=== PATIENT | female | born 1970 | race Caucasian/White ===

== ENCOUNTER → 2025-05-06 08:58 | Outpatient (REF) | payer BC, SELFPAY ==
[2025-05-06 12:30] LABS: Hematocrit 43.5 % (37.0-47.0); Hemoglobin 14.3 g/dL (12.0-16.0); Mean Corp Hgb Conc. 32.9 g/dL (33.0-37.0); Mean Corpuscular Volume 88.1 fL (81.0-99.0); Nucleated Red Blood Cells % 0 %; Platelet Count 274 10^3/uL (130-400); Red Cell Dist. Width 13.1 % (11.5-14.5)
[2025-05-06 13:13] LABS: ALT (SGPT) 30 U/L (0-35); AST (SGOT) 26 U/L (14-36); Albumin 4.6 g/dl (3.5-5.0); Alkaline Phosphatase 59 U/L (38-126); Blood Urea Nitrogen 15 mg/dl (7-17); Calcium 9.9 mg/dl (8.4-10.2); Carbon Dioxide 30 mmol/L (22-30); Chloride 104 mmol/L (98-107); Glucose 92 mg/dl (70-99); HDL Cholesterol 37 mg/dl; LDL Cholesterol, Calculated 155 mg/dl; Potassium 4.6 mmol/L (3.5-5.1); Sodium 142 mmol/L (135-145); Total Protein 7.8 g/dl (6.3-8.2); Very Low Density Lipoprotein 19 mg/dl (0-30); eGFR > 60.00
[2025-05-06 13:33] LABS: TSH 3.19 uIU/ml (0.47-4.68)
[2025-05-06 13:34] LABS: Glycohemoglobin (HgbA1c) 5.0 % (4.0-5.6)
[2025-05-06 14:05] LABS: Urine Character Clear (Clear)
[2025-05-06 14:42] LABS: Urine Squamous Cell >30 /LPF (Few)
[2025-05-06 14:45] LABS: Urine Red Blood Cell 0-2 /HPF (0-2)
[2025-05-06 15:07] LABS: Hepatitis C Antibody Negative (Negative)
== END ==
LOC: HWLAB 08:58
PROVIDERS: ATTENDING PHYSICIAN Internal Medicine
DX: Z00.00 Encounter for general adult medical examination without abnormal findings (principal); M06.09 Rheumatoid arthritis without rheumatoid factor, multiple sites; G47.33 Obstructive sleep apnea (adult) (pediatric); Z68.42 Body mass index [BMI] 45.0-49.9, adult; Z12.31 Encounter for screening mammogram for malignant neoplasm of breast
CPT/HCPCS: 36415; 80053; 80061; 81003; 81015; 83036; 84439; 84443; 85025; 86803